=== PATIENT | female | born 1950 | race Caucasian/White ===

== ENCOUNTER 2022-11-27 10:04 | Outpatient (CLI) | payer MEDICARE, SELFPAY ==
--- NOTE | 2022-11-27 10:13 | MM_ITS ---
WS: [id number] BILATERAL SCREENING DIGITAL TOMOSYNTHESIS MAMMOGRAM WITH CAD HISTORY: SCREENING COMPARISON: 10/06/2019 and 09/22/2018 Bilateral CC and MLO views with tomosynthesis and synthetic mammography submitted. Computer aided det ection analyzed. Breast composition: The breasts are heterogeneously dense, which may obscure small masses. No suspici ous masses, microcalcifications or architectural distortion. IMPRESSION: MM/[place] [id number] BI-RADS: 1-Negative FOLLOW UP: 1 Year Follow-up
== END 2022-11-27 10:05 | disposition home or self-care (01) ==
PROVIDERS: PCP Family Medicine; Visit Provider Nurse Practitioner Family
DX: Z12.31 Encounter for screening mammogram for malignant neoplasm of breast (principal)
CPT/HCPCS: 77063; 77067

== ENCOUNTER 2023-08-29 11:30 | Outpatient (CLI) | payer MEDICARE, SELFPAY ==
[2023-08-29 12:08] LABS: Basophils # 0.1 10^3/uL (0.0-0.1); Basophils % 0.7 %; Eosinophils # 0.1 10^3/uL (0.0-0.8); Eosinophils % 1.5 %; Hematocrit 37.5 % (36-47); Lymphocytes # 2.8 10^3/uL (0.8-4.8); Lymphocytes % 41.8 %; Mean Corpuscular Hemoglobin 29.6 pg (27-33); Mean Corpuscular Volume 92.6 fl (85-98); Mean Platelet Volume 10.4 fL (7.4-10.4); Monocytes # 0.5 10^3/uL (0.2-0.9); Monocytes % 7.4 %; Neutrophils # 3.26 10^3/uL (1.8-7.7); Neutrophils % 48.5 %; Nucleated Red Blood Cells % 0 %; Platelet Count 209 10^3/cmm (157-399); Red Blood Count 4.05 10^6/uL (3.85-5.65); Red Cell Distribution Width 12.9 % (12.1-15.1); White Blood Count 6.73 10^3/uL (3.29-11.43)
[2023-08-29 12:26] LABS: Albumin Level 4.1 g/dL (3.5-5.2); Anion Gap 12.1 (5-19); Blood Urea Nitrogen 23 mg/dL (8-23); Carbon Dioxide 28 mmol/L (22-29); Chloride 105 mmol/L (98-107); Glucose 85 mg/dL (65-115); Phosphorus 3.2 mg/dL (2.5-4.5); Potassium 4.1 mmol/L (3.5-5.1); Sodium 141 mmol/L (136-145)
[2023-08-29 12:27] LABS: Creatinine Urine, Random 135 mg/dL (28-217); Microalbum Creatinine Ratio Ur 7 mg/dL (0-20); Microalbumin Random Urine 1 ug/dL (0-20)
[2023-08-29 12:34] LABS: Parathyroid Hormone 48.6 pg/mL (15-65)
== END 2023-08-29 11:31 | disposition home or self-care (01) ==
LOC: LAB 11:37
PROVIDERS: PCP Family Medicine; Visit Provider Registered Nurse
DX: N18.32 Chronic kidney disease, stage 3b (principal)
CPT/HCPCS: 80069; 82044; 82310; 83970; 85025

== ENCOUNTER 2024-05-06 07:05 | Outpatient (CLI) | payer MEDICARE, SELFPAY ==
--- NOTE | 2024-05-06 07:19 | MR_ITS ---
WS: [id number] MRI HEAD WITH CONTRAST WITH ATTENTION TO THE INTERNAL AUDITORY CANALS TECHNIQUE: Sagittal T1, T2 axial, T2 axial flair, axial susceptibility weighted imaging, axial diffusion weighted images, and coronal T2 images were obtained. Pre and post T1 axial and post T1 coronal images. ADC and FSPGR images. Post gadolinium images with attention to the internal auditory canals. Axial fiesta imaging. CLINICAL INFORMATION: SPECIFIED HEARING LOSS,BILATERAL COMPARISON: None. FINDINGS: Some images degraded by motion. No evidence of enhancing IAC or CP angle mass. Normal trigeminal nerve root entry zones. Proximal 7th and 8th cranial nerves are normal in appearance. Paranasal sinuses are well aerated. Mild mucosal thickening in the mastoid tips. Normal vascular flow voids at the skull base. No extra-axial fluid collections. No evidence of mass or mass effect. No hydrocephalus. Normal posterior nasopharynx. Moderate small vessel changes. Moderate parenchymal volume loss. Small vessel changes in the deanne. No evidence of restricted diffusion to suggest acute ischemia. No hemosiderin on the susceptibility weighted images. MR/MR iac's wo/w con* [id number] IMPRESSION: 1. No evidence of enhancing IAC or CP angle mass. 2. Paranasal sinuses are well aerated. Mastoid air cells are well aerated. Tra ce mucosal thickening mastoid tips. 3. Moderate small vessel changes. Moderate parenchymal volume loss. Small vess el changes in the deanne.
[2024-05-06] MEDS: gadobenate dimeglumine 20 mL vial 15 ML IV (08:06)
== END 2024-05-06 07:06 | disposition home or self-care (01) ==
PROVIDERS: PCP Family Medicine; Visit Provider Nurse Practitioner Family
DX: H91.8X3 Other specified hearing loss, bilateral (principal); R93.0 Abnormal findings on diagnostic imaging of skull and head, not elsewhere classified; H74.8X9 Other specified disorders of middle ear and mastoid, unspecified ear
CPT/HCPCS: 70553